=== PATIENT | female | born 1960 | race Caucasian/White ===

== ENCOUNTER 2022-12-16 18:54 | Emergency (ER) | payer BC ==
[~2022-12-16] VITALS: Ht 162.6 cm; Wt 57.6 kg
[2022-12-16 20:23] VITALS: BP 155/95; TEMP 98.1; O2SAT 98
== END 2022-12-16 21:50 | disposition home or self-care (01) ==
LOC: ER 19:01
DX: Z00.00 Encounter for general adult medical examination without abnormal findings (principal)
CPT/HCPCS: 93971-TC